=== PATIENT | male | born 1935 | race Caucasian/White ===

== ENCOUNTER 2017-02-07 17:13 | Emergency (ER) | payer MEDICARE, OTHER ==
[2017-02-07 17:35] VITALS: BP 130/50
[2017-02-07] MEDS ORDERED: cefTRIAXone 2 GM in Sodium Chloride 0.9% 50 ML IV ONE (18:34)
[2017-02-07] MEDS ORDERED: Sodium Chloride 0.9% 10 ML Syringe FLUSH PRN (18:34)
[2017-02-07] MEDS ORDERED: Clindamycin HCl 150 MG Cap PO ONE (18:34)
--- NOTE | 2017-02-07 18:40 | EDM.PDOC ---
ED HPI GENERAL MEDICAL PROBLEM - General Chief Complaint: Lower Extremity Injury/Pain Stated Complaint: LEG HURTS NOT AN ACCIDENT Time Seen by Provider: 02/07/17 18:25 Source of Information: Reports: Patient, Old Records History Limitations: Reports: No Limitations - History of Present Illness INITIAL COMMENTS - FREE TEXT/NARRATIVE: 81 yo male with chronic LE edema presents with a 2 d hx of L lower leg redness and increase swelling. Denies fever since onset. Saw his provider just before this began. Has borderline AODM. Is on amoxicillin now for a dental problem. Here with his from [facility]. Onset: Gradual Onset Date: 02/05/17 Duration: Day(s): Location: Reports: Lower Extremity, Left Quality: Reports: Dull Severity: Moderate Improves with: Reports: None Worsens with: Reports: Other (time) Context: Reports: Other (PHx of cellulitis, chronic LE edema) Associated Symptoms: Reports: No Other Symptoms Treatments [employer] CONSULTANT: Reports: Other (see below) (none) Left Lower Leg Pain Score (Numeric/FACES): 3 - Related Data Allergies Allergy/AdvReac Type Severity Reaction Status Date / Time No Known Allergies Allergy Verified 02/07/17 17:28 Home Meds: Home Meds Allopurinol [Zyloprim] 100 mg PO DAILY 11/13/14 [History] Aspirin [Adult Low Dose Aspirin EC] 81 mg PO DAILY 11/13/14 [History] Colchicine 0.6 mg PO DAILY 11/13/14 [History] Lisinopril 10 mg PO DAILY 11/13/14 [History] Simvastatin [Zocor] 20 mg PO DAILY 11/13/14 [History] Amoxicillin [Amoxicillin] 1 tab PO TID 02/07/17 [History] Latanoprost [Latanoprost] 1 drop TOP BEDTIME 02/07/17 [History] Past Medical History HEENT History: Reports: Hard of Hearing Cardiovascular History: Reports: High Cholesterol, Hypertension, PVD Gastrointestinal History: Reports: Other (See Below) Other Gastrointestinal History: STOMACH SURGERY PERFORATED ULCER Musculoskeletal History: Reports: Arthritis Neurological History: Reports: Cerebral Aneurysms Endocrine/Metabolic History: Reports: Diabetes, Type II, Obesity/BMI 30+ Other Dermatologic History: left leg years ago - Infectious Disease History Infectious Disease History: Reports: Chicken Pox, Measles, Mumps - Past Surgical History Other HEENT Surgeries/Procedures: 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 Other Cardiovascular Surgeries/Procedures: left leg clots--poor circulation GI Surgical History: Reports: Colonoscopy Social & Family History - Tobacco Use Smoking Status *Q: Never Smoker Years of Tobacco use: 25 Packs/Tins Daily: 0.5 Used Tobacco, but Quit: Yes Month Tobacco Last Used: 02/1986 Second Hand Smoke Exposure: No - Caffeine Use Caffeine Use: Reports: Coffee, Tea - Alcohol Use Days Per Week of Alcohol Use: 7 Number of Drinks Per Day: 2 Total Drinks Per Week: 14 - Recreational Drug Use Recreational Drug Use: No Review of Systems - Review of Systems Review Of Systems: See Below Constitutional: Reports: No Symptoms Respiratory: Reports: No Symptoms Cardiovascular: Reports: No Symptoms GI/Abdominal: Reports: No Symptoms Genitourinary: Reports: No Symptoms Musculoskeletal: Reports: No Symptoms Skin: Reports: Erythema Neurological: Reports: No Symptoms Psychiatric: Reports: No Symptoms ED EXAM, GENERAL - Physical Exam Exam: See Below Exam Limited By: No Limitations General Appearance: Alert, WD/WN, No Apparent Distress, Obese Respiratory/Chest: No Respiratory Distress, Lungs Clear, Normal Breath Sounds, No Accessory Muscle Use Cardiovascular: Regular Rate, Rhythm Extremities: Pedal Edema (L greater than R) Neurological: Alert, Oriented, CN II-XII Intact, Normal Cognition, No Motor/ Sensory Deficits Psychiatric: Normal Affect, Normal Mood Skin Exam: Warm, Dry, Intact, Erythema, Increased Warmth (starting just below the knee and extending down to and including the foot. No open wounds.) Lymphatic: No Adenopathy Course - Vital Signs Last Recorded V/S: Last Vital Signs Temp 36.8 C 02/07/17 17:54 Pulse 61 02/07/17 17:54 Resp 21 H 02/07/17 17:54 BP 130/50 L 02/07/17 17:54 Pulse Ox 96 02/07/17 17:54 - Orders/Labs/Meds Orders: Active Orders 24 hr Category Date Time Status Sodium Chloride 0.9% [Saline Flush] Med 02/07/17 18:34 Active 10 ml FLUSH ASDIRECTED PRN Saline Lock Insert [OM.PC] Routine Oth 02/07/17 18:34 Ordered Medication Orders Sodium Chloride (Saline Flush) 10 ml FLUSH ASDIRECTED PRN PRN Reason: Keep Vein Open Last Admin: 02/07/17 19:06 Dose: 10 ml Labs: Laboratory Tests 02/07/17 Range/Units 18:33 WBC 12.6 H (4.5-11.0) K/uL RBC 3.38 L (4.30-5.90) M/uL Hgb 10.9 L (12.0-15.0) g/dL Hct 33.1 L (40.0-54.0) % MCV 98 (80-98) fL MCH 32 H (27-31) pg MCHC 33 (32-36) % Plt Count 246 (150-400) K/uL Meds: Medications Generic Name Dose Route Start Last Admin Trade Name Freq PRN Reason Stop Dose Admin Sodium Chloride 10 ml 02/07/17 18:34 02/07/17 19:06 Saline Flush FLUSH 10 ml ASDIRECTED PRN Administration Keep Vein Open Discontinued Medications Generic Name Dose Route Start Last Admin Trade Name Freq PRN Reason Stop Dose Admin Clindamycin HCl 300 mg 02/07/17 18:34 02/07/17 19:00 Cleocin PO 02/07/17 18:35 300 mg ONETIME ONE Administration Ceftriaxone Sodium 2 gm/ 50 mls @ 100 mls/hr 02/07/17 18:34 02/07/17 19:07 Sodium Chloride IV 02/07/17 19:03 100 mls/hr ONETIME ONE Administration Departure - Departure Time of Disposition: 19:45 Disposition: Home, Self-Care 01 Condition: Fair Clinical Impression: Cellulitis of lower extremity Qualifiers: Laterality: left Qualified Code(s): L03.116 - Cellulitis of left lower limb - Discharge Information Referrals: José Bolaños MD [Primary Care Provider] - Forms: ED Department Discharge - My Orders Last 24 Hours: My Active Orders 02/07/17 18:34 Sodium Chloride 0.9% [Saline Flush] 10 ml FLUSH ASDIRECTED PRN Saline Lock Insert [OM.PC] Routine - Assessment/Plan Last 24 Hours: My Active Orders 02/07/17 18:34 Sodium Chloride 0.9% [Saline Flush] 10 ml FLUSH ASDIRECTED PRN Saline Lock Insert [OM.PC] Routine
== END 2017-02-07 20:00 | disposition home or self-care (01) ==
LOC: JP.ED 17:13
DX: L03.116 Cellulitis of left lower limb (principal); I10 Essential (primary) hypertension; E78.00 Pure hypercholesterolemia, unspecified; E11.9 Type 2 diabetes mellitus without complications; Z87.891 Personal history of nicotine dependence; Z79.82 Long term (current) use of aspirin; Z79.899 Other long term (current) drug therapy
CPT/HCPCS: 36415; 85027; 96365; 99285; A9270; J0696; J7050; 99284

== ENCOUNTER 2020-01-13 14:20 | Emergency (ER) | payer MEDICARE, BC ==
[2020-01-13] MEDS ORDERED: Acetaminophen 325 MG Tab PO PRN (14:33)
--- NOTE | 2020-01-13 14:36 | EDM.PDOC ---
ED HPI GENERAL MEDICAL PROBLEM - General Chief Complaint: Respiratory Problem Stated Complaint: COVID MAYBE Time Seen by Provider: 01/13/20 14:33 Source of Information: Reports: Patient, EMS, RN Notes Reviewed History Limitations: Reports: Respiratory Distress - History of Present Illness INITIAL COMMENTS - FREE TEXT/NARRATIVE: 84-year-old gentleman presents emergency department with a complaint of weakness and shortness of breath, he did recently have surgery on his back had been doing well for that but however the last 2 days had progressively gotten more more weak with some shortness of breath also there is a potential for Covid exposure about 2 weeks prior - Related Data Allergies Allergy/AdvReac Type Severity Reaction Status Date / Time No Known Allergies Allergy Verified 01/13/20 15:06 Home Meds: Home Meds Allopurinol [Zyloprim] 100 mg PO DAILY 11/13/14 [History] Aspirin [Adult Low Dose Aspirin EC] 81 mg PO DAILY 11/13/14 [History] Lisinopril 10 mg PO DAILY 11/13/14 [History] Simvastatin [Zocor] 20 mg PO DAILY 11/13/14 [History] Atenolol/Chlorthalidone [Atenolol-Chlorthalidone 50-25] 1 tab PO DAILY 12/28/17 [History] Past Medical History HEENT History: Reports: Hard of Hearing Cardiovascular History: Reports: High Cholesterol, Hypertension, PVD Gastrointestinal History: Reports: Other (See Below) Other Gastrointestinal History: STOMACH SURGERY PERFORATED ULCER Musculoskeletal History: Reports: Arthritis Neurological History: Reports: Cerebral Aneurysms Endocrine/Metabolic History: Reports: Diabetes, Type II, Obesity/BMI 30+ Other Dermatologic History: left leg years ago - Infectious Disease History Infectious Disease History: Reports: Chicken Pox, Measles, Mumps - Past Surgical History Other HEENT Surgeries/Procedures: 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 Cardiovascular Surgical History: Reports: None Other Cardiovascular Surgeries/Procedures: left leg clots--poor circulation GI Surgical History: Reports: Colonoscopy Endocrine Surgical History: Reports: None Neurological Surgical History: Reports: None Musculoskeletal Surgical History: Reports: None Dermatological Surgical History: Reports: None Social & Family History - Family History Family Medical History: No Pertinent Family History - Caffeine Use Caffeine Use: Reports: Coffee ED ROS GENERAL - Review of Systems Review Of Systems: See Below Constitutional: Reports: Weakness, Fatigue HEENT: Reports: No Symptoms Respiratory: Reports: Shortness of Breath Cardiovascular: Reports: Dyspnea on Exertion GI/Abdominal: Reports: No Symptoms ED EXAM, GENERAL - Physical Exam Exam: See Below Exam Limited By: Respiratory Distress General Appearance: Alert, Moderate Distress Respiratory/Chest: Lungs Clear, Normal Breath Sounds, Chest Non-Tender, Respiratory Distress, Decreased Breath Sounds Cardiovascular: Regular Rate, Rhythm, No Murmur GI/Abdominal: Soft, Non-Tender Extremities: Pedal Edema Course - Vital Signs Last Recorded V/S: Last Vital Signs Temp 96.2 F L 01/13/20 15:13 Pulse 67 01/13/20 17:27 Resp 16 01/13/20 17:27 BP 118/58 L 01/13/20 17:27 Pulse Ox 94 L 01/13/20 17:27 - Orders/Labs/Meds Orders: Active Orders 24 hr Category Date Time Status Nurse Communication: Isolation [RC] ASDIRECTED Care 01/13/20 14:33 Active CORONAVIRUS COVID-19 KAREN [MOLEC] Routine Lab 01/13/20 16:18 Received CULTURE BLOOD [BC] Urgent Lab 01/13/20 16:15 Received CULTURE BLOOD [BC] Urgent Lab 01/13/20 16:25 Received CULTURE URINE [RM] Urgent Lab 01/13/20 17:09 Received Acetaminophen [TylenoL] Med 01/13/20 14:33 Active 650 mg PO Q4H PRN Norepinephrine [Levophed] 4 mg Med 01/13/20 15:30 Active Dextrose 5% in Water 246 ml IV TITRATE Piperacillin/Tazobactam [Zosyn] 4.5 gm Med 01/13/20 16:15 Active Sodium Chloride 0.9% [Normal Saline] 100 ml IV Q6H Sodium Chloride 0.9% [Normal Saline] 1,000 ml Med 01/13/20 18:00 Active IV ASDIRECTED Vancomycin 1 gm Med 01/13/20 17:00 Active Sodium Chloride 0.9% [Normal Saline] 250 ml IV Q12H Blood Culture x2 Reflex Set [OM.PC] Urgent Oth 01/13/20 16:06 Ordered Isolation [COMM] Stat Oth 01/13/20 14:33 Ordered Medication Orders Acetaminophen (Tylenol) 650 mg PO Q4H PRN PRN Reason: Fever Greater Than 101 Last Admin: 01/13/20 15:11 Dose: 650 mg Documented by: KAREN Norepinephrine Bitartrate 4 mg (/ Dextrose/Water) 250 mls @ 7.5 mls/hr IV TITRATE LYNNE; Protocol Last Titration: 01/13/20 17:18 Dose: 3 mcg/min, 11.25 mls/hr Documented by: Admin: 01/13/20 15:37 Dose: 2 mcg/min, 7.5 mls/hr Documented by: KAREN Vancomycin HCl 1 gm/ Sodium (Chloride) 250 mls @ 150 mls/hr IV Q12H LYNNE Piperacillin Sod/Tazobactam (Sod 4.5 gm/ Sodium Chloride) 100 mls @ 100 mls/hr IV Q6H LYNNE Last Admin: 01/13/20 16:47 Dose: 100 mls/hr Documented by: KAREN Sodium Chloride (Normal Saline) 1,000 mls @ 999 mls/hr IV ASDIRECTED LYNNE Labs: Laboratory Tests 01/13/20 01/13/20 01/13/20 Range/Units 14:33 14:33 15:17 WBC (4.5-11.0) K/uL RBC (4.30-5.90) M/uL Hgb (12.0-15.0) g/dL Hct (40.0-54.0) % MCV (80-98) fL MCH (27-31) pg MCHC (32-36) % Plt Count (150-400) K/uL Neut % (Auto) (36-66) % Lymph % (Auto) (24-44) % Louisa % (Auto) (2-6) % Eos % (Auto) (2-4) % Baso % (Auto) (0-1) % PT 11.5 (9.5-12.0) sec INR 1.06 (0.80-1.20) D-Dimer, Quantitative (0.0-500.0) ng/mL Puncture Site Rt brachial ABG pH 7.328 L (7.350-7.450) ABG pCO2 25.1 L (35.0-42.0) mmHg ABG pO2 141.0 H (75.0-100.0) mmHg ABG HCO3 12.8 L (22.0-26.0) mmol/L ABG Total CO2 11.6 L (23.0-27.0) mmol/L ABG O2 Saturation 98.4 H (95.0-98.0) % ABG O2 Content 17.9 (15.0-23.0) %vol ABG Base Excess -11.4 mm/L ABG Hemoglobin 13.0 L (13.5-18.0) g/dL ABG Oxyhemoglobin 96.1 % ABG Carboxyhemoglobin 1.4 (0.0-1.6) % ABG Methemoglobin 0.9 % Wai Test Not performed O2 Delivery Device Non rebr mask Oxygen Flow Rate 5.0 L Sodium (140-148) mmol/L Potassium (3.6-5.2) mmol/L Chloride (100-108) mmol/L Carbon Dioxide (21-32) mmol/L Anion Gap (5.0-14.0) mmol/L BUN (7-18) mg/dL Creatinine (0.8-1.3) mg/dL Est Cr Clr Drug Dosing mL/min Estimated GFR (MDRD) (>60) Glucose (74-106) mg/dL Lactic Acid 4.3 H (0.4-2.0) mmol/L Calcium (8.5-10.1) mg/dL Ferritin (8-388) ng/ml Total Bilirubin (0.2-1.0) mg/dL Direct Bilirubin (0.0-0.2) mg/dL Indirect Bilirubin AST (15-37) U/L ALT (12-78) U/L Alkaline Phosphatase (46-116) U/L Lactate Dehydrogenase (85-227) U/L C-Reactive Protein (0.0-0.3) mg/dL Total Protein (6.4-8.2) g/dL Albumin (3.4-5.0) g/dL Globulin (2.3-3.5) g/dL Albumin/Globulin Ratio (1.2-2.2) Procalcitonin ng/mL Urine Color (YELLOW) Urine Appearance (CLEAR) Urine pH (5.0-8.0) Ur Specific [place] (1.008-1.030) Urine Protein (NEGATIVE) mg/dL Urine Glucose (UA) (NEGATIVE) mg/dL Urine Ketones (NEGATIVE) mg/dL Urine Occult Blood (NEGATIVE) Urine Nitrite (NEGATIVE) Urine Bilirubin (NEGATIVE) Urine Urobilinogen (0.2-1.0) EU/dL Ur Leukocyte Esterase (NEGATIVE) Urine RBC (0-5) Urine WBC (0-5) Ur Epithelial Cells Amorphous Sediment Urine Bacteria SARS CoV-2 RNA Rapid KAREN 01/13/20 01/13/20 01/13/20 Range/Units 15:17 15:17 15:17 WBC 12.9 H (4.5-11.0) K/uL RBC 3.97 L (4.30-5.90) M/uL Hgb 12.6 (12.0-15.0) g/dL Hct 40.2 (40.0-54.0) % MCV 101 H (80-98) fL MCH 32 H (27-31) pg MCHC 31 L (32-36) % Plt Count 109 L (150-400) K/uL Neut % (Auto) 85 H (36-66) % Lymph % (Auto) 7 L (24-44) % Louisa % (Auto) 7 H (2-6) % Eos % (Auto) 0 L (2-4) % Baso % (Auto) 0 (0-1) % PT (9.5-12.0) sec INR (0.80-1.20) D-Dimer, Quantitative > 71805 H (0.0-500.0) ng/mL Puncture Site ABG pH (7.350-7.450) ABG pCO2 (35.0-42.0) mmHg ABG pO2 (75.0-100.0) mmHg ABG HCO3 (22.0-26.0) mmol/L ABG Total CO2 (23.0-27.0) mmol/L ABG O2 Saturation (95.0-98.0) % ABG O2 Content (15.0-23.0) %vol ABG Base Excess mm/L ABG Hemoglobin (13.5-18.0) g/dL ABG Oxyhemoglobin % ABG Carboxyhemoglobin (0.0-1.6) % ABG Methemoglobin % Wai Test O2 Delivery Device Oxygen Flow Rate L Sodium (140-148) mmol/L Potassium (3.6-5.2) mmol/L Chloride (100-108) mmol/L Carbon Dioxide (21-32) mmol/L Anion Gap (5.0-14.0) mmol/L BUN (7-18) mg/dL Creatinine (0.8-1.3) mg/dL Est Cr Clr Drug Dosing mL/min Estimated GFR (MDRD) (>60) Glucose (74-106) mg/dL Lactic Acid (0.4-2.0) mmol/L Calcium (8.5-10.1) mg/dL Ferritin 172 (8-388) ng/ml Total Bilirubin (0.2-1.0) mg/dL Direct Bilirubin (0.0-0.2) mg/dL Indirect Bilirubin AST (15-37) U/L ALT (12-78) U/L Alkaline Phosphatase (46-116) U/L Lactate Dehydrogenase (85-227) U/L C-Reactive Protein (0.0-0.3) mg/dL Total Protein (6.4-8.2) g/dL Albumin (3.4-5.0) g/dL Globulin (2.3-3.5) g/dL Albumin/Globulin Ratio (1.2-2.2) Procalcitonin ng/mL Urine Color (YELLOW) Urine Appearance (CLEAR) Urine pH (5.0-8.0) Ur Specific [place] (1.008-1.030) Urine Protein (NEGATIVE) mg/dL Urine Glucose (UA) (NEGATIVE) mg/dL Urine Ketones (NEGATIVE) mg/dL Urine Occult Blood (NEGATIVE) Urine Nitrite (NEGATIVE) Urine Bilirubin (NEGATIVE) Urine Urobilinogen (0.2-1.0) EU/dL Ur Leukocyte Esterase (NEGATIVE) Urine RBC (0-5) Urine WBC (0-5) Ur Epithelial Cells Amorphous Sediment Urine Bacteria SARS CoV-2 RNA Rapid KAREN 01/13/20 01/13/20 01/13/20 Range/Units 15:17 15:17 15:34 WBC (4.5-11.0) K/uL RBC (4.30-5.90) M/uL Hgb (12.0-15.0) g/dL Hct (40.0-54.0) % MCV (80-98) fL MCH (27-31) pg MCHC (32-36) % Plt Count (150-400) K/uL Neut % (Auto) (36-66) % Lymph % (Auto) (24-44) % Louisa % (Auto) (2-6) % Eos % (Auto) (2-4) % Baso % (Auto) (0-1) % PT (9.5-12.0) sec INR (0.80-1.20) D-Dimer, Quantitative (0.0-500.0) ng/mL Puncture Site ABG pH (7.350-7.450) ABG pCO2 (35.0-42.0) mmHg ABG pO2 (75.0-100.0) mmHg ABG HCO3 (22.0-26.0) mmol/L ABG Total CO2 (23.0-27.0) mmol/L ABG O2 Saturation (95.0-98.0) % ABG O2 Content (15.0-23.0) %vol ABG Base Excess mm/L ABG Hemoglobin (13.5-18.0) g/dL ABG Oxyhemoglobin % ABG Carboxyhemoglobin (0.0-1.6) % ABG Methemoglobin % Wai Test O2 Delivery Device Oxygen Flow Rate L Sodium 136 L (140-148) mmol/L Potassium 6.0 H (3.6-5.2) mmol/L Chloride 101 (100-108) mmol/L Carbon Dioxide 17 L (21-32) mmol/L Anion Gap 24.0 H (5.0-14.0) mmol/L BUN 78 H* (7-18) mg/dL Creatinine 5.8 H* (0.8-1.3) mg/dL Est Cr Clr Drug Dosing 11.74 mL/min Estimated GFR (MDRD) 9 L (>60) Glucose 141 H (74-106) mg/dL Lactic Acid (0.4-2.0) mmol/L Calcium 8.7 (8.5-10.1) mg/dL Ferritin (8-388) ng/ml Total Bilirubin 0.6 (0.2-1.0) mg/dL Direct Bilirubin 0.14 (0.0-0.2) mg/dL Indirect Bilirubin 0.46 AST 36 (15-37) U/L ALT 26 (12-78) U/L Alkaline Phosphatase 73 (46-116) U/L Lactate Dehydrogenase 190 (85-227) U/L C-Reactive Protein 8.36 H (0.0-0.3) mg/dL Total Protein 7.7 (6.4-8.2) g/dL Albumin 3.5 (3.4-5.0) g/dL Globulin 4.2 H (2.3-3.5) g/dL Albumin/Globulin Ratio 0.8 L (1.2-2.2) Procalcitonin 0.62 ng/mL Urine Color (YELLOW) Urine Appearance (CLEAR) Urine pH (5.0-8.0) Ur Specific [place] (1.008-1.030) Urine Protein (NEGATIVE) mg/dL Urine Glucose (UA) (NEGATIVE) mg/dL Urine Ketones (NEGATIVE) mg/dL Urine Occult Blood (NEGATIVE) Urine Nitrite (NEGATIVE) Urine Bilirubin (NEGATIVE) Urine Urobilinogen (0.2-1.0) EU/dL Ur Leukocyte Esterase (NEGATIVE) Urine RBC (0-5) Urine WBC (0-5) Ur Epithelial Cells Amorphous Sediment Urine Bacteria SARS CoV-2 RNA Rapid KAREN Negative 01/13/20 Range/Units 16:25 WBC (4.5-11.0) K/uL RBC (4.30-5.90) M/uL Hgb (12.0-15.0) g/dL Hct (40.0-54.0) % MCV (80-98) fL MCH (27-31) pg MCHC (32-36) % Plt Count (150-400) K/uL Neut % (Auto) (36-66) % Lymph % (Auto) (24-44) % Louisa % (Auto) (2-6) % Eos % (Auto) (2-4) % Baso % (Auto) (0-1) % PT (9.5-12.0) sec INR (0.80-1.20) D-Dimer, Quantitative (0.0-500.0) ng/mL Puncture Site ABG pH (7.350-7.450) ABG pCO2 (35.0-42.0) mmHg ABG pO2 (75.0-100.0) mmHg ABG HCO3 (22.0-26.0) mmol/L ABG Total CO2 (23.0-27.0) mmol/L ABG O2 Saturation (95.0-98.0) % ABG O2 Content (15.0-23.0) %vol ABG Base Excess mm/L ABG Hemoglobin (13.5-18.0) g/dL ABG Oxyhemoglobin % ABG Carboxyhemoglobin (0.0-1.6) % ABG Methemoglobin % Wai Test O2 Delivery Device Oxygen Flow Rate L Sodium (140-148) mmol/L Potassium (3.6-5.2) mmol/L Chloride (100-108) mmol/L Carbon Dioxide (21-32) mmol/L Anion Gap (5.0-14.0) mmol/L BUN (7-18) mg/dL Creatinine (0.8-1.3) mg/dL Est Cr Clr Drug Dosing mL/min Estimated GFR (MDRD) (>60) Glucose (74-106) mg/dL Lactic Acid (0.4-2.0) mmol/L Calcium (8.5-10.1) mg/dL Ferritin (8-388) ng/ml Total Bilirubin (0.2-1.0) mg/dL Direct Bilirubin (0.0-0.2) mg/dL Indirect Bilirubin AST (15-37) U/L ALT (12-78) U/L Alkaline Phosphatase (46-116) U/L Lactate Dehydrogenase (85-227) U/L C-Reactive Protein (0.0-0.3) mg/dL Total Protein (6.4-8.2) g/dL Albumin (3.4-5.0) g/dL Globulin (2.3-3.5) g/dL Albumin/Globulin Ratio (1.2-2.2) Procalcitonin ng/mL Urine Color Yellow (YELLOW) Urine Appearance Clear (CLEAR) Urine pH 5.0 (5.0-8.0) Ur Specific [place] 1.025 (1.008-1.030) Urine Protein Trace H (NEGATIVE) mg/dL Urine Glucose (UA) Negative (NEGATIVE) mg/dL Urine Ketones Trace H (NEGATIVE) mg/dL Urine Occult Blood Negative (NEGATIVE) Urine Nitrite Positive H (NEGATIVE) Urine Bilirubin Moderate H (NEGATIVE) Urine Urobilinogen 0.2 (0.2-1.0) EU/dL Ur Leukocyte Esterase Negative (NEGATIVE) Urine RBC Not seen (0-5) Urine WBC Not seen (0-5) Ur Epithelial Cells Not seen Amorphous Sediment Few Urine Bacteria Not seen SARS CoV-2 RNA Rapid KAREN Meds: Medications Generic Name Dose Route Start Last Admin Trade Name Freq PRN Reason Stop Dose Admin Acetaminophen 650 mg 01/13/20 14:33 01/13/20 15:11 Tylenol PO 650 mg Q4H PRN Administration Fever Greater Than 101 Norepinephrine Bitartrate 4 mg 250 mls @ 7.5 mls/hr 01/13/20 15:30 01/13/20 17:18 / Dextrose/Water IV 3 mcg/min TITRATE LYNNE 11.25 mls/hr Titration Protocol 2 MCG/MIN Vancomycin HCl 1 gm/ Sodium 250 mls @ 150 mls/hr 01/13/20 17:00 Chloride IV Q12H LYNNE Piperacillin Sod/Tazobactam 100 mls @ 100 mls/hr 01/13/20 16:15 01/13/20 16:47 Sod 4.5 gm/ Sodium Chloride IV 100 mls/hr Q6H LYNNE Administration Sodium Chloride 1,000 mls @ 999 mls/hr 01/13/20 18:00 Normal Saline IV ASDIRECTED LYNNE Discontinued Medications Generic Name Dose Route Start Last Admin Trade Name Freq PRN Reason Stop Dose Admin Lactated Ringer's 1,000 mls @ 999 mls/hr 01/13/20 16:33 01/13/20 16:47 Ringers, Lactated IV 01/13/20 17:33 999 mls/hr BOLUS ONE Administration Departure - Departure Time of Disposition: 17:54 Disposition: DC/Tfer to Acute Hospital 02 Condition: Poor Clinical Impression: Sepsis Qualifiers: Sepsis type: sepsis due to unspecified organism Sepsis acute organ dysfunction status: with acute organ dysfunction Severe sepsis acute organ dysfunction type: acute renal failure Acute renal failure type: unspecified Severe sepsis shock status: with septic shock Qualified Code(s): A41.9 - Sepsis, unspecified organism; R65.21 - Severe sepsis with septic shock; N17.9 - Acute kidney failure, unspecified - Discharge Information Referrals: PCP,None [Primary Care Provider] - Forms: ED Department Discharge Sepsis Event Note (ED) - Focused Exam Vital Signs: Vital Signs Temp Pulse Resp BP Pulse Ox 01/13/20 17:27 67 16 118/58 L 94 L 01/13/20 17:14 73 15 82/41 L 98 01/13/20 16:32 83 14 91/49 L 96 01/13/20 15:23 65 77/45 L 01/13/20 15:13 96.2 F L 72 19 85/45 L 94 L 01/13/20 14:34 96.2 F L 46 L 16 134/115 H 100 - My Orders Last 24 Hours: My Active Orders 01/13/20 14:33 Nurse Communication: Isolation [RC] ASDIRECTED Acetaminophen [TylenoL] 650 mg PO Q4H PRN Isolation [COMM] Stat 01/13/20 15:30 Norepinephrine [Levophed] 4 mg Dextrose 5% in Water 246 ml IV TITRATE 01/13/20 16:06 Blood Culture x2 Reflex Set [OM.PC] Urgent 01/13/20 16:15 CULTURE BLOOD [BC] Urgent Piperacillin/Tazobactam [Zosyn] 4.5 gm Sodium Chloride 0.9% [Normal Saline] 100 ml IV Q6H 01/13/20 16:18 CORONAVIRUS COVID-19 KAREN [MOLEC] Routine 01/13/20 16:25 CULTURE BLOOD [BC] Urgent 01/13/20 17:00 Vancomycin 1 gm Sodium Chloride 0.9% [Normal Saline] 250 ml IV Q12H 01/13/20 17:09 CULTURE URINE [RM] Urgent 01/13/20 18:00 Sodium Chloride 0.9% [Normal Saline] 1,000 ml IV ASDIRECTED - Assessment/Plan Last 24 Hours: My Active Orders 01/13/20 14:33 Nurse Communication: Isolation [RC] ASDIRECTED Acetaminophen [TylenoL] 650 mg PO Q4H PRN Isolation [COMM] Stat 01/13/20 15:30 Norepinephrine [Levophed] 4 mg Dextrose 5% in Water 246 ml IV TITRATE 01/13/20 16:06 Blood Culture x2 Reflex Set [OM.PC] Urgent 01/13/20 16:15 CULTURE BLOOD [BC] Urgent Piperacillin/Tazobactam [Zosyn] 4.5 gm Sodium Chloride 0.9% [Normal Saline] 100 ml IV Q6H 01/13/20 16:18 CORONAVIRUS COVID-19 KAREN [MOLEC] Routine 01/13/20 16:25 CULTURE BLOOD [BC] Urgent 01/13/20 17:00 Vancomycin 1 gm Sodium Chloride 0.9% [Normal Saline] 250 ml IV Q12H 01/13/20 17:09 CULTURE URINE [RM] Urgent 01/13/20 18:00 Sodium Chloride 0.9% [Normal Saline] 1,000 ml IV ASDIRECTED Plan: Assessment Acuity = acute Site and laterality = sepsis Etiology = unknown Manifestations = hypotensive, acute renal failure Location of injury = Home Lab values = WBC elevated 12.9 consistent leukocytosis platelets low at 109 consistent with thrombocytopenia D-dimer elevated 10,000 uncertain significance pH 7.33 PCO2 of 25.1 PO2 141 bicarb 12.8 potassium elevated 6.0 consistent hyperkalemia BUN 78 creatinine elevated 5.8 consistent with acute renal failure stage G4 lactic acid elevated 4.3 consistent with lactic acidosis CRP elevated 8.36 procalcitonin elevated 0.62 chest x-ray shows no acute pulmonary process urinalysis positive for nitrates cultures blood and urine pending Covid was negative Plan Call discussed case with Dr. Early emergency room physician [facility] at [phone] can accept the patient in transport will be transported via EMS ground This note was dictated using [employer] voice recognition software please call with any questions on syntax or grammar.
--- NOTE | 2020-01-13 15:10 | CR ---
CHEST: Portable 01/13/2020 at 2:55 PM CLINICAL HISTORY:Respiratory failure COMPARISON:None FINDINGS: The heart size, pulmonary vascularity and hilar structures are normal. No infiltrate effusion or pneumothorax is seen. There is minimal streaky density in the left infrahilar region which is likely some scarring or atelectasis. There are atherosclerotic changes in the aorta. There is a ventriculoperitoneal shunt line across the right hemithorax IMPRESSION: No acute cardiopulmonary process.
[2020-01-13] MEDS ORDERED: Norepinephrine 4 MG in Dextrose 5% in Water 246 ML IV SCH ×2 (15:30)
[2020-01-13] MEDS ORDERED: Piperacillin/Tazobactam 4.5 GM in Sodium Chloride 0.9% 100 ML IV SCH (16:15)
[2020-01-13] MEDS ORDERED: Lactated Ringers 1,000 ML IV ONE (16:33)
[2020-01-13 17:59] VITALS: BP 72/47; PULSE 79
[2020-01-13] MEDS ORDERED: Sodium Chloride 0.9% 1,000 ML IV SCH (18:00)
== END 2020-01-13 19:15 ==
LOC: JP.ED 14:20
DX: A41.9 Sepsis, unspecified organism (principal); R65.21 Severe sepsis with septic shock; N17.9 Acute kidney failure, unspecified; E78.00 Pure hypercholesterolemia, unspecified; I10 Essential (primary) hypertension; E11.51 Type 2 diabetes mellitus with diabetic peripheral angiopathy without gangrene; M19.90 Unspecified osteoarthritis, unspecified site; Z79.82 Long term (current) use of aspirin; E66.9 Obesity, unspecified; Z68.34 Body mass index [BMI] 34.0-34.9, adult; Z20.828 Contact with and (suspected) exposure to other viral communicable diseases
CPT/HCPCS: 36415; 36600; 71045; 80048; 80076; 81001; 82728; 82803; 83605; 83615; 84145; 85025; 85379; 85610; 86140; 87040; 87086; 96365; 96366; 96368; 99285; A9270; J2543; J3370; J7050; J7060; J7120; U0002